=== PATIENT | male | born 1955 | race Caucasian/White ===

== ENCOUNTER 2020-12-26 13:09 | Emergency (ER) | payer MEDICARE ==
[2020-12-26] MEDS ORDERED: FAMOTIDINE INJ/PF 20 MG/2 ML SDV IV ONE ×2 (14:07→16:12)
[2020-12-26] MEDS ORDERED: METHYLPREDNISOLONE INJ 125 MG/2 ML SDV IV ONE (14:07)
[2020-12-26] MEDS ORDERED: DIPHENHYDRAMINE HCL 25 MG CAPSULE PO ONE (14:07)
--- NOTE | 2020-12-26 14:36 | ER Document Report ---
ED General - General Chief Complaint: Flank Pain Stated Complaint: RIGHT FLANK PAIN Time Seen by Provider: 12/26/20 13:54 Notes: CHIEF COMPLAINT: Right-sided flank pain for 1 week, inguinal hernia for 1 day HPI: 65-year-old male with dementia history. Limited history from the patient daughter providing majority of the history per his request. 65-year-old male has been complaining of right-sided flank pain for approximately a week. They were bathing the patient at home today and noticed a large inguinal swelling in the right groin region. Patient became very uncomfortable with the discomfort in the right flank region and upper quadrant region so they called EMS. No fever. Patient has had a chronic cough. ROS: See HPI - all other systems were reviewed and are otherwise negative Constitutional: no fever Eyes: no drainage, no blurred vision ENT: no runny nose, no sore throat Cardiovascular: no chest pain Resp: no SOB, + cough GI: no vomiting, no diarrhea, + abdominal pain : no dysuria Integumentary: + rash Allergy: no hives Musculoskeletal: no extremity pain or swelling Neurological: no numbness/tingling, no weakness MEDICATIONS: I agree with the patient medications as charted by the RN. ALLERGIES: I agree with the allergies as charted by the RN. PAST MEDICAL HISTORY/PAST SURGICAL HISTORY: Reviewed and agree as charted by RN. SOCIAL HISTORY: Reviewed and agree as charted by RN. FAMILY HISTORY: No significant familial comorbid conditions directly related to patient complaint EXAM: Reviewed vital signs as charted by RN. CONSTITUTIONAL: Alert and oriented to name only. Well-appearing; well-nourished HEAD: Normocephalic; atraumatic EYES: PERRL; Conjunctivae clear, sclerae non-icteric ENT: normal nose; no rhinorrhea; moist mucous membranes; pharynx without lesions noted, no uvula edema or deviation, no tonsillar hypertrophy, phonation normal NECK: Supple without meningismus; non-tender; no cervical lymphadenopathy, no masses CARD: RRR; no murmurs, no clicks, no rubs, no gallops; symmetric distal pulses RESP: Normal chest excursion without splinting or tachypnea; breath sounds clear and equal bilaterally; no wheezes, no rhonchi, no rales, pulse oximetry 97% on room air not hypoxic ABD/GI: Normal bowel sounds; non-distended; soft, fairly significant pain on palpation of the right upper quadrant region around into the right flank lower chest wall and thoracic back superficially on the skin. There is 1 vague vesicular type lesion on the anterior chest but no other visible vesicular rash on the right side. There is a large right inguinal hernia noted that I was able to fully reduce at bedside with palpation, no rebound, no guarding; no palpable organomegaly or masses. BACK: The back appears normal and is non-tender to palpation over the thoracic and lumbar spine, there is no CVA tenderness EXT: Normal ROM in all joints; non-tender to palpation; no cyanosis, no effusions, no edema SKIN: Normal color for age and race; warm; dry; good turgor NEURO: Moves all extremities equally; Motor and sensory function intact PSYCH: The patient's mood and manner are agitated. Grooming and personal hygiene are appropriate. MDM: 65-year-old male brought for right upper quadrant right flank pain complaints today that became severe. Has had vague complaints over the last week. Had a large inguinal hernia on the right side that I was able to reduce. Patient's discomfort on the thoracic back appears very superficial and in the skin area I would question whether patient may have early shingles. Given the level of his discomfort and pain in the right upper quadrant region will obtain CT imaging. Given his chronic cough will obtain chest x-ray. The patient was evaluated during the global COVID-19 pandemic and that diagnosis was suspected/considered upon their initial presentation. Their evaluation, treatment and testing was consistent with current guidelines for patients who present with complaints or symptoms that may be related to COVID-19 - Related Data Allergies/Adverse Reactions: No Known Allergies Allergy (Verified 12/26/20 15:19) Home Medications: metoprolol, tamsulosin, hydralazine, eliquis ,folic, losartan, pantoprazole, D3, ASA, atorvastatin, montelukast, trazadone, escitalopram, albuterol, buspirone Past Medical History - Social History Smoking Status: Never Smoker Family History: Reviewed & Not Pertinent - Past Medical History Cardiac Medical History: Reports: Hx Heart Attack, Hx Hypercholesterolemia, Hx Hypertension Pulmonary Medical History: Reports: Hx Asthma, Hx COPD GI Medical History: Reports: Hx Hiatal Hernia Past Surgical History: Reports: Hx Cardiac Catheterization, Hx Cardiac Surgery Physical Exam - Vital signs Vitals: Temp Pulse Resp BP Pulse Ox 99.4 F 71 20 114/65 99 12/26/20 13:33 12/26/20 13:33 12/26/20 13:33 12/26/20 13:33 12/26/20 13:33 Course - Re-evaluation Re-evalutation: 12/26/20 17:45 Labs do not show acute emergent abnormalities no urinary infection. CT imaging shows constipation more prominent in the right upper quadrant. I do suspect that the patient likely has early shingles likely causing his pain. We will start him on a course of prednisone, pain medication, constipation medication, will prescribe antivirals, family members will not start them until they do actually see a rash present. Follow-up PCP. - Vital Signs Vital signs: Temp Pulse Resp BP Pulse Ox 99.4 F 71 20 114/65 99 12/26/20 13:33 12/26/20 13:33 12/26/20 13:33 12/26/20 13:33 12/26/20 13:33 - Laboratory Results Result Diagrams: 12/26/20 15:15 12/26/20 15:15 Laboratory Results Interpreted: 12/26/20 12/26/20 14:40 15:15 Sodium 127.3 L Chloride 91 L Albumin 3.3 L Urine Protein 30 H Urine Blood MODERATE H Urine Urobilinogen 2.0 H Critical Laboratory Results Reviewed: No Critical Results - Radiology Results Critical Radiology Results Reviewed: No Critical Results Discharge - Discharge Clinical Impression: Abdominal pain, RUQ (right upper quadrant) Shingles Qualifiers: Herpes zoster complications: without complications Qualified Code(s): B02.9 - Zoster without complications Constipation Qualifiers: Constipation type: other constipation type Qualified Code(s): K59.09 - Other constipation Inguinal hernia Qualifiers: Obstruction and gangrene presence: without obstruction or gangrene Laterality: unilateral Recurrence: not specified as recurrent Qualified Code(s): K40.90 - Unilateral inguinal hernia, without obstruction or gangrene, not specified as recurrent Condition: Stable Disposition: HOME, SELF-CARE Additional Instructions: Take the medications as prescribed. Do not take the valacyclovir unless you actually see a rash started on the right flank region. I suspect patient likely has shingles. His CT scan and lab work did not show other significant abnormalities. Follow-up with your primary care provider for reevaluation of symptoms call for appointment Prescriptions: Prednisone [Deltasone 20 mg Tablet] 2 tab PO DAILY 5 Days #10 tablet Polyethylene Glycol 3350 [Miralax] 1 cap PO DAILY #527 powder Hydrocodone/Acetaminophen [Sunburst 5-325 mg Tablet] 1 tab PO Q4 PRN #15 tablet PRN Reason: Valacyclovir HCl [Valacyclovir] 1,000 mg PO TID #21 tablet
--- NOTE | 2020-12-26 15:34 | RADIOLOGY REPORT (SQ) ---
EXAM DESCRIPTION: CHEST SINGLE VIEW IMAGES COMPLETED DATE/TIME: 12/26/2020 3:14 pm REASON FOR STUDY: COUGH COMPARISON: None. EXAM PARAMETERS: NUMBER OF VIEWS: One view. TECHNIQUE: An AP view of the chest was obtained. RADIATION DOSE: NA LIMITATIONS: None. FINDINGS: LUNGS AND PLEURA: No consolidation, pleural effusion or pneumothorax. MEDIASTINUM AND HILAR STRUCTURES: No mediastinal or hilar contour abnormality. HEART AND VASCULAR STRUCTURES: The cardiac silhouette is enlarged. BONES: Overlap of the right humeral head over the glenoid - if the patient is symptomatic consider co rrelation with shoulder radiographs to exclude a dislocation. There are chronic deformities of sever al inferior left-sided ribs. HARDWARE: None in the chest. OTHER: No other finding. IMPRESSION: Cardiomegaly without a superimposed acute cardiopulmonary process. TECHNICAL DOCUMENTATION: JOB ID: [id number] 2010 [employer]- All Rights Reserved Reading location - IP/workstation name: [email or web address]
[2020-12-26 15:46] LABS: APPEARANCE,URINE CLEAR; BILIRUBIN,URINE NEGATIVE (NEGATIVE); COLOR,URINE YELLOW; GLUCOSE, URINE NEGATIVE (NEGATIVE); KETONES,URINE NEGATIVE (NEGATIVE); LEUKOCYTE ESTERASE,URINE NEGATIVE (NEGATIVE); NITRITE,URINE NEGATIVE (NEGATIVE); PROTEIN,URINE 30 mg/dL (NEGATIVE); URINE SPECIFIC GRAVITY 1.014
[2020-12-26 16:02] LABS: ALBUMIN 3.3 g/dL (3.5-5.0); ALKALINE PHOSPHATASE 94 U/L (38-126); ANION GAP 9 (5-19); ASPARTATE AMINO TRANSFERASE 27 U/L (17-59); BILIRUBIN,DIRECT 0.2 mg/dL (0.0-0.4); BILIRUBIN,TOTAL 1.1 mg/dL (0.2-1.3); BLOOD UREA NITROGEN 17 mg/dL (7-20); CALCIUM 8.5 mg/dL (8.4-10.2); CARBON DIOXIDE 27 mmol/L (22-30); CHLORIDE 91 mmol/L (98-107); GLUCOSE 95 mg/dL (75-110); POTASSIUM 4.1 mmol/L (3.6-5.0); TOTAL PROTEIN 6.9 g/dL (6.3-8.2)
[2020-12-26] MEDS ORDERED: METHYLPREDNISOLONE INJ 125 MG/2 ML SDV ONE (16:11)
[2020-12-26] MEDS ORDERED: DIPHENHYDRAMINE HCL 25 MG CAPSULE ONE (16:11)
--- NOTE | 2020-12-26 16:45 | EKG REPORT ---
SEVERITY:- ABNORMAL ECG - ATRIAL FIBRILLATION, V-RATE 50-71 LOW VOLTAGE IN FRONTAL LEADS BORDERLINE T ABNORMALITIES, INFERIOR LEADS : Confirmed by: Kelvin Ascencio MD 26-Dec-2020 16:44:43
--- NOTE | 2020-12-26 17:25 | RADIOLOGY REPORT (SQ) ---
EXAM DESCRIPTION: CT ABD/PELVIS WITH IV ORAL IMAGES COMPLETED DATE/TIME: 12/26/2020 1:50 pm REASON FOR STUDY: right flank pain COMPARISON: None. TECHNIQUE: CT scan of the abdomen and pelvis performed using helical scanning technique with dynamic intravenous contrast injection. No oral contrast. Images reviewed with lung, soft tissue, and bone windows. Reconstructed coronal and sagittal MPR images reviewed. Delayed images were not acquired. Al l images stored on PACS. All CT scanners at this facility use dose modulation, iterative reconstruction, and/or weight based d osing when appropriate to reduce radiation dose to as low as reasonably achievable (ALARA). [facility]: Dose Right [facility]: CareDose [facility]: Dose Right [facility]: Teradose 4D [facility]: Carmolex, CONTRAST TYPE AND DOSE: contrast/concentration: Isovue 350.00 mmol/ml; Total Contrast Delivered: 83. 0 ml; Total Saline Delivered: 29.0 ml RENAL FUNCTION: Creatinine 1.05 RADIATION DOSE: CT Rad equipment meets quality standard of care and radiation dose reduction techniq ues were employed. CTDIvol: 14.5 mGy. DLP: 777 mGy-cm.. LIMITATIONS: Some streak artifact from patient's upper extremities. FINDINGS: LOWER CHEST: Mild basilar atelectasis. Coronary artery calcifications. Small pericardial effusion. LIVER: Normal size. No masses. No dilated ducts. SPLEEN: Enlarged, measuring nearly 21 cm in length. No focal splenic lesion. There are some collate ral vessels in the left abdomen with perigastric and perisplenic varices demonstrated. PANCREAS: No masses. No significant calcifications. No adjacent inflammation or peripancreatic fluid collections. Pancreatic duct not dilated. GALLBLADDER: No identified stones by CT criteria. No inflammatory changes to suggest cholecystitis. ADRENAL GLANDS: No significant masses or asymmetry. RIGHT KIDNEY AND URETER: No solid masses. No significant calcifications. No hydronephrosis or hyd roureter. LEFT KIDNEY AND URETER: Atrophic left kidney. No suspicious renal mass identified. Possible tiny c alcification at the lower pole. Some mild pelviectasis. No obstructing lesion identified. AORTA AND VESSELS: Atherosclerotic plaque in the abdominal aorta and branches without aortic aneurysm . Left renal artery is small, but patent. There may be some narrowing at the origin. RETROPERITONEUM: No retroperitoneal adenopathy, hemorrhage or masses. BOWEL AND PERITONEAL CAVITY: Small bowel loops extend into a right inguinal hernia without associated obstruction. No other significant bowel dilatation. Moderate stool in the colon. This coarse calc ification in the left abdomen extending from the left upper quadrant towards the left pelvis in which may be due to sequela of prior inflammation. APPENDIX: Not definitively visualized. PELVIS: Prostate gland is mildly enlarged. Mild diffuse bladder wall thickening. ABDOMINAL WALL: Right inguinal hernia containing small amount of fluid and small bowel loops. BONES: Severe degenerative changes of the right hip with some flattening of the right femoral head. Degenerative changes of the spine. OTHER: No other significant finding. IMPRESSION: 1. Splenomegaly with abdominal varices predominantly in the left abdomen. Preserved he patic contour. No suspicious liver lesion. 2. Asymmetric left renal atrophy. No obstructive uropathy. 3. Moderate stool in the colon. Right inguinal hernia containing small amount of fluid and nondilat ed small bowel loops. No bowel obstruction. 4. Mildly enlarged prostate gland. Diffuse bladder wall thickening could reflect urinary outlet obs truction. 5. Coarse calcification within the posterior left abdomen from the left upper quadrant to the left p emmanuelle is nonspecific but could reflect sequela of prior infection. TECHNICAL DOCUMENTATION: JOB ID: [id number] Quality ID # [id number]: Final reports with documentation of one or more dose reduction techniques (e.g., Au tomated exposure control, adjustment of the mA and/or kV according to patient size, use of iterative reconstruction technique) 2010 [employer]- All Rights Reserved Reading location - IP/workstation name: [email or web address]
[2020-12-26] MEDS ORDERED: HYDROCODONE/ACETAMINOPHEN 5-325 MG TABLET PO ONE (17:46)
[2020-12-26 18:49] VITALS: BP 118/62
== END 2020-12-26 18:50 | disposition home or self-care (01) ==
LOC: ER 13:09
DX: K59.00 Constipation, unspecified (principal); K40.90 Unilateral inguinal hernia, without obstruction or gangrene, not specified as recurrent; B02.9 Zoster without complications; R16.1 Splenomegaly, not elsewhere classified; I86.8 Varicose veins of other specified sites; I13.10 Hypertensive heart and chronic kidney disease without heart failure, with stage 1 through stage 4 chronic kidney disease, or unspecified chronic kidney disease; N18.9 Chronic kidney disease, unspecified; I25.2 Old myocardial infarction; J44.9 Chronic obstructive pulmonary disease, unspecified; N40.0 Benign prostatic hyperplasia without lower urinary tract symptoms; Z79.899 Other long term (current) drug therapy; Z79.01 Long term (current) use of anticoagulants; Z79.82 Long term (current) use of aspirin; R05 Cough; Z20.822 Contact with and (suspected) exposure to COVID-19
CPT/HCPCS: 93005; 99285; 96374; 96375; 36415; 83690; 80053; 81001; 84484; 71045; 74177; 93010; A9270 ×2; J2930; S0028